=== PATIENT | female | born 1990 | race Caucasian/White ===

== ENCOUNTER → 2016-04-22 | Outpatient (CLI) | payer OTHER ==
[~2016-04-22] MED LIST: DICL75 PO; TRAM50 PO; Z.0.BCPILL PO
[2016-04-22 11:53] LABS: GLUCOSE,FASTING 91 MG/DL (74-99); TOTAL PROTEIN SPE 7.8 GM/DL (6.0-7.6)
[2016-04-22 16:11] LABS: HEMOGLOBIN A1a 1.2 %; HEMOGLOBIN A1b 0.8 %; HEMOGLOBIN F 1.4 %; HEMOGLOBIN P3 3.6 %
[2016-04-23 15:10] LABS: ANA SCREEN POS (NEG)
[2016-04-23 20:26] LABS: ALBUMIN SPE 4.59 GM/DL (3.50-5.00); ALPHA 1 GLOBULIN 0.27 GM/DL (0.11-0.29); ALPHA 2 GLOBULIN 0.93 GM/DL (0.22-1.00); BETA GLOBULINS (SPE) 0.94 GM/DL (0.53-1.03)
[2016-04-27 03:54] LABS: HU (NEURONAL NUCLEAR) WESTBLOT NEGATIVE (NEGATIVE); NEURONAL NUCLEAR(Ri) AB SCREEN FLUORESCENCE NOTED (NEGATIVE); PURKINJE CELL (YO) AB FLUORESCENCE NOTED (NEGATIVE); PURKINJE CELL(YO)IGG AB TITER ND titer (<1:40); YO WESTBLOT NEGATIVE (NEGATIVE)
== END ==
LOC: CLAB 10:42
PROVIDERS: ATTEND Specialist
DX: E11.65 Type 2 diabetes mellitus with hyperglycemia (principal); M31.6 Other giant cell arteritis; E78.4 Other hyperlipidemia; E78.5 Hyperlipidemia, unspecified; R70.0 Elevated erythrocyte sedimentation rate; E53.8 Deficiency of other specified B group vitamins; A69.20 Lyme disease, unspecified; G03.1 Chronic meningitis
CPT/HCPCS: 36415; 82607; 82947; 83036; 84165; 84181; 84439; 84443; 85652; 86038; 86039; 86255; 87801

== ENCOUNTER → 2016-06-03 | Outpatient (CLI) | payer OTHER ==
[2016-06-03 14:06] LABS: MEAN CELL VOLUME 78.4 FL (80.0-100.0); MEAN CORPUSCULAR HEMOGLOBIN 25.7 PG (27.0-34.0); MEAN CORPUSCULAR HGB CONC 32.8 % (32.0-36.0); PLATELET COUNT 469 TH/MM3 (150-450); RED BLOOD COUNT 4.85 MIL/MM3 (4.00-5.30); RED CELL DISTRIBUTION WIDTH 16.4 % (11.6-17.2); REVIEW FLAG FINAL; WHITE BLOOD COUNT 6.5 TH/MM3 (4.0-11.0)
[2016-06-03 14:09] LABS: BACTERIA, URINE MOD /hpf; BLOOD, URINE SMALL (NEG); GLUCOSE,URINE NEG (NEG); KETONE, URINE NEG (NEG); MUCUS URINE FEW /lpf (OCC); NITRITE,URINE NEG (NEG); SQUAMOUS EPITHELIAL CELL URINE 5 /hpf (0-5); URINE COLOR YELLOW (YELLW/STRAW)
[2016-06-03 14:27] LABS: ALT (GPT) 30 U/L (10-53); ANION GAP 7 MEQ/L (5-15); AST (GOT) 14 U/L (15-37); BICARBONATE 26.6 MEQ/L (21.0-32.0); BLOOD UREA NITROGEN 13 MG/DL (7-18); CHLORIDE 107 MEQ/L (98-107); GLOMERULAR FILTRATION RATE 90 ML/MIN (>89); GLUCOSE,FASTING 88 MG/DL (74-99); POTASSIUM 4.4 MEQ/L (3.5-5.1); SODIUM (NA) 141 MEQ/L (136-145)
[2016-06-03 14:29] LABS: ALKALINE PHOSPHATASE 121 U/L (45-117); TOTAL BILIRUBIN ADULT 0.2 MG/DL (0.2-1.0)
[2016-06-03 14:40] LABS: WESTERGREN SEDIMENTATION RATE 21 mm/hr (0-20)
[2016-06-04 15:04] LABS: ANA SCREEN POS (NEG)
[2016-06-06 13:53] LABS: SM ANTIBODY <1.0 NEG AI (<1.0 NEGATIVE); SM/RNP ANTIBODY <1.0 NEG AI (<1.0 NEGATIVE)
== END ==
LOC: PLAB 09:48
PROVIDERS: ATTEND Internal Medicine Rheumatology
DX: R76.8 Other specified abnormal immunological findings in serum (principal)
CPT/HCPCS: 36415; 80053; 81001; 85027; 85652; 86038; 86039; 86140; 86147; 86225; 86235

== ENCOUNTER → 2016-10-07 | Outpatient (CLI) | payer OTHER ==
[2016-10-07 09:41] LABS: ANION GAP 8 MEQ/L (5-15); AST (GOT) 12 U/L (15-37); BICARBONATE 25.7 MEQ/L (21.0-32.0); BLOOD UREA NITROGEN 16 MG/DL (7-18); CHLORIDE 105 MEQ/L (98-107); GLOMERULAR FILTRATION RATE 101 ML/MIN (>89); GLUCOSE,FASTING 91 MG/DL (74-99); POTASSIUM 4.5 MEQ/L (3.5-5.1); SODIUM (NA) 139 MEQ/L (136-145)
[2016-10-07 09:42] LABS: ALT (GPT) 29 U/L (10-53)
[2016-10-07 09:45] LABS: ALKALINE PHOSPHATASE 131 U/L (45-117); TOTAL BILIRUBIN ADULT 0.2 MG/DL (0.2-1.0)
== END ==
LOC: PLAB 07:33
PROVIDERS: ATTEND Internal Medicine Gastroenterology
DX: R74.8 Abnormal levels of other serum enzymes (principal)
CPT/HCPCS: 80053

== ENCOUNTER → 2016-10-27 | Day surgery (SDC) | payer OTHER ==
[~2016-10-27] MED LIST changes: +LACTATED RINGER'S 1000 ML INJ 1,000 ML ONE; +PROPOFOL 500 MG/50 ML BTL IV ONE
--- NOTE | 2016-10-27 11:26 | GIPROC ---
[facility] [address] [facility], [address] EGD PROCEDURE REPORT EXAM DATE: 10/27/2016 PATIENT NAME: Jing Sanders MR #: [id number] BIRTHDATE: 1990 ATTENDING: Bambi Hodges MD ORDER #: [id number] GAS FLOW REGULATOR: Zahra Gaviria CST STATUS: outpatient INDICATIONS: The patient is a 26 yr old female here for an EGD due to history of esophageal reflux PROCEDURE PERFORMED: EGD w/ biopsy MEDICATIONS: None and Per Anesthesia. TOPICAL ANESTHETIC: CONSENT: The patient understands the risks and benefits of the procedure and understands that these risks include, but are not limited to: sedation, allergic reaction, infection, perforation and/or bleeding. Alternative means of evaluation and treatment include, among others: physical exam, x-rays, and/or surgical intervention. The patient elects to proceed with this endoscopic procedure. medical equipment was checked for proper function. Hand hygiene and appropriate measures for infection prevention was taken. After the risks, benefits and alternatives of the procedure were thoroughly explained, Informed consent was verified, confirmed and timeout was successfully executed by the treatment team. The patient was anesthetized with topical anesthesia and the EC-3890Li ([id number]) endoscope was introduced through the mouth and advanced to the second portion of the duodenum. Retroflexed views revealed no abnormalities The gastroscope was then slowly withdrawn and removed. ESOPHAGUS: There was LA Class A esophagitis noted. A biopsy was performed using cold forceps. Sample sent for histology. STOMACH: A polypoid shaped sessile polyp ranging between 5-9mm in size was found in the gastric body. Multiple biopsies was performed using cold forceps. Sample sent for histology. There was erythematous moderate gastritis in the gastric antrum. A biopsy was performed using cold forceps. Sample sent for histology. DUODENUM: The duodenal mucosa appeared normal. ADVERSE EVENTS: There were no complications. IMPRESSIONS: 1. There was LA Class A esophagitis noted; biopsy was performed 2. Sessile polyp ranging between 5-9mm in size was found in the gastric body; multiple biopsies was performed 3. There was erythematous gastritis in the gastric antrum; biopsy was performed 4. Normal duodenal mucosa 5. Retroflexed views revealed no abnormalities RECOMMENDATIONS: 1. Await biopsy results. Biopsy results will not be ready for 7-10 days. If you don't hear from us in two weeks, call our office for biopsy results. 2. Anti-reflux regimen 3. Protonix 40mg Q AM PATIENT CONDITION: stable DISPOSITION: Home REPEAT EXAM: Return 1 year EGD pending biopsy results Bambi Hodges MD eSigned: Bambi Hodges MD 10/27/2016 11:26 AM cc: Laverne Hercules [facility] Stephanie Kiran M.D. PATIENT NAME: Jing Sanders MR#: [id number]
--- NOTE | 2016-10-27 11:38 | GIPROC ---
[facility] [address] [facility], [address] COLONOSCOPY PROCEDURE REPORT EXAM DATE: 10/27/2016 PATIENT NAME: Jing Sanders MR #: [id number] BIRTHDATE: 1990 ENDOSCOPIST: Bambi Hodges MD ORDER #: [id number] SOLE CONDITIONER: Izzy Coffman STATUS: outpatient INDICATIONS: The patient is a 26 yr old female here for a colonoscopy due to patient's immediate family history of colon cancer and patient's family history of colon polyps PROCEDURE PERFORMED: Colonoscopy, diagnostic MEDICATIONS: None and Per Anesthesia. PREP QUALITY: The Cyril Bowel Prep Score was Right colon 2, Mid colon 2, and Left colon 3. Total = 7. ESTIMATED BLOOD LOSS: None CONSENT: The patient understands the risks and benefits of the procedure and understands that these risks include, but are not limited to: sedation, allergic reaction, infection, perforation and/or bleeding. Alternative means of evaluation and treatment include, among others: physical exam, x-rays, and/or surgical intervention. The patient elects to proceed with this endoscopic procedure. medical equipment was checked for proper function. Hand hygiene and appropriate measures for infection prevention was taken. After the risks, benefits and alternatives of the procedure were thoroughly explained, Informed consent was verified, confirmed and timeout was successfully executed by the treatment team. A digital exam revealed external hemorrhoids The EC-3890Li ([id number]) endoscope was introduced through the anus and advanced to the cecum, which was identified by both the appendix and ileocecal valve. The instrument was then slowly withdrawn as the colon was fully examined. COLON FINDINGS: The colonic mucosa appeared normal. Retroflexed views revealed internal hemorrhoids and Retroflexed views revealed small internal hemorrhoids The scope was then completely withdrawn from the patient and the procedure terminated. PROCEDURE WITHDRAWAL TIME:6minutes ADVERSE EVENTS: There were no complications. IMPRESSIONS: 1. The colonic mucosa appeared normal 2. Retroflexed views revealed internal hemorrhoids 3. Retroflexed views revealed small internal hemorrhoids 4. Revealed external hemorrhoids RECOMMENDATIONS: 1. Continue surveillance 2. Yearly hemoccult RECALL: Return 3 years Colonoscopy Bambi Hodges MD eSigned: Bambi Hodges MD 10/27/2016 11:38 AM cc: Juli Kiran M.D and Laverne Hercules [facility] Stephanie
== END | disposition home or self-care (01) ==
LOC: ESDC 09:50
PROVIDERS: ATTEND Internal Medicine Gastroenterology
DX: Z12.11 Encounter for screening for malignant neoplasm of colon (principal); Z80.0 Family history of malignant neoplasm of digestive organs; K64.8 Other hemorrhoids; K64.4 Residual hemorrhoidal skin tags; K21.0 Gastro-esophageal reflux disease with esophagitis; K31.7 Polyp of stomach and duodenum; K29.70 Gastritis, unspecified, without bleeding
CPT/HCPCS: 00740; 00810; 43239; 45378; 88305; 88312; J3010; J7120

== ENCOUNTER → 2016-11-19 | Outpatient (CLI) | payer OTHER ==
[~2016-11-19] MED LIST changes: -LACTATED RINGER'S 1000 ML INJ 1,000 ML ONE; -PROPOFOL 500 MG/50 ML BTL IV ONE
== END ==
LOC: CLAB 07:51
PROVIDERS: ATTEND Internal Medicine Gastroenterology
DX: R10.11 Right upper quadrant pain (principal)
CPT/HCPCS: 36415; 82565; 84520